=== PATIENT | female | born 1970 | race Caucasian/White ===

== ENCOUNTER 2019-09-14 08:50 | Emergency (ER) | payer BC ==
[2019-09-14 09:33] VITALS: BP 133/91
--- NOTE | 2019-09-14 10:10 | UC ---
Laceration HPI - HPI Summary HPI Summary: Pt presents with c/o laceration to right side lower lip. Pt states that she got up to go to the bathroom earlier this more, had sudden onset of left calf pain that occurs intermittently since having back surgery "many years ago" and "passed out" hit face/mouth on porcelain sink. Pt has c/o "chipped" left front toothe and laceration inside right side lower lip and right side outer lip along vermilion border. - History Of Current Complaint Chief Complaint: UCLaceration Stated Complaint: LIP LACERATION Time Seen by Provider: 09/14/19 09:35 Hx Obtained From: Patient Hx Last Menstrual Period: unknown Laceration Location: Face Mechanism Of Injury: Blunt Trauma Severity: Mild Pain Intensity: 5 Aggravating Factors: Movement - Allergies/Home Medications Allergies/Adverse Reactions: Allergies Allergy/AdvReac Type Severity Reaction Status Date / Time cephalexin [From Keflex] Allergy Rash And Verified 09/14/19 09:13 Itching Penicillins Allergy Rash And Verified 09/14/19 09:13 Itching tetracycline Allergy Swelling Verified 09/14/19 09:13 Of Face,Lips,& Throat Home Medications: Home Medications Ibuprofen TAB* [Advil TAB*] 400 mg PO Q6H PRN 09/14/19 [History Confirmed ] PMH/Surg Hx/FS Hx/Imm Hx Previously Healthy: Yes Neurological History: Other - back surgery - Surgical History Surgical History: Yes Surgery Procedure, Year, and Place[place] [facility] [place] BILAT [place]OT SURGERY CH[place]. URETHRA SURGERY AGE 4 AND 5. L HIP SCOPING 2012. uterine ablation. discectomy. discectomy-L5, S1 - Family History Known Family History: Positive: Unknown, Hypertension - Social History Occupation: Employed Full-time Lives: With Family Alcohol Use: Rare Alcohol Amount: 1/WEEK-NONE RECENTLY Substance Use Type: None Smoking Status (MU): Never Smoked Tobacco Have You Smoked in the Last Year: No - Immunization History Most Recent Influenza Vaccination: pt stated she was getting it every year Most Recent Tetanus Shot: within 10 years Most Recent Pneumonia Vaccination: none Vaccination Up to Date: Yes Review of Systems All Other Systems Reviewed And Are Negative: Yes Constitutional: Positive: Negative Skin: Positive: Other - laceration right side lower lip and linner lip Eyes: Positive: Negative ENT: Positive: Dental Pain - chipped left fron tooth Respiratory: Positive: Negative Cardiovascular: Positive: Negative Gastrointestinal: Positive: Negative Genitourinary: Positive: Negative Motor: Positive: Negative Neurovascular: Positive: Negative Musculoskeletal: Positive: Edema - at laceration site Neurological: Positive: Negative Psychological: Positive: Negative Is Patient Immunocompromised?: No Physical Exam Triage Information Reviewed: Yes Appearance: Well-Appearing Vital Signs: Initial Vital Signs Temp 98.1 F 09/14/19 09:15 Pulse 82 09/14/19 09:15 Resp 14 09/14/19 09:15 BP 133/91 09/14/19 09:15 Pulse Ox 100 09/14/19 09:15 Vital Signs Reviewed: Yes Eye Exam: Normal ENT: Positive: Other - kmild swelling ot right side lower lip. moderate to large amount of white hard, particles, assumed to to be pieces of porcelain sink. Dental: Positive: Dental Fracture @ - left fron tooth, moderate chipped front tooth, no root exposure. Neck exam: Normal Respiratory Exam: Normal Respiratory: Positive: No respiratory distress Cardiovascular Exam: Other - see ekg Musculoskeletal Exam: Normal Neurological Exam: Normal Psychological Exam: Normal Skin Exam: Other - laceration to right side lower lip Laceration Repair - Laceration Repair 1 Description: Linear : No Repair Necessary Laceration Size After Repair: Length (cm) - 1, Width (mm) - 3, Depth (mm) - 3-4 Debridement: large amount of normal saline used to remove pieces of white hard particles, unable to remove fine particles of white material. laceration was closed and edges well aproximated before and after irrigation. I discussed my concerns about closing the woudn with sutures or glue with possible fine FB in wound and pt verbalized understanding and agreed to plan of care. Modified For Repair: No Cleansing Completed Via Routine Prep: Yes Irrigation With Pressure Irrigation Device: Yes Laceration Course/Dx - Course/Dx Course Of Treatment: laceration was not repaired with suture, glue or steri strips. Pt had possible FB that we were unable to removed with copious irrigation and cleansing. - Differential Dx - Laceration/Wound Differental Diagnoses: Laceration - Diagnosis Provider Diagnosis: Laceration of face with foreign body, Chipped tooth Discharge ED - Sign-Out/Discharge Documenting (check all that apply): Patient Departure All imaging exams completed and their final reports reviewed: No Studies - Discharge Plan Condition: Stable Disposition: HOME Prescriptions: Sulfamethox/Trimethoprim DS* [Bactrim DS 800/160 TAB*] 1 tab PO Q12H #14 tab Patient Education Materials: Facial Laceration (ED) Referrals: Ayush Arita MD [Medical Doctor] - Gui Landeros DO [Primary Care Provider] - If Needed Additional Instructions: Please note that your laceration was not sutured closed due to possible foreign body remaining in your wound. To support healing please keep wound clean and covered as needed. Continue to encourage the exfoliation of the fine particles of Foreign Body in your wound through the techniques we discussed. If needed, follow up with a plastic surgeon to improve or revise the scar. - Billing Disposition and Condition Condition: STABLE Disposition: Home
== END 2019-09-14 10:23 | disposition home or self-care (01) ==
LOC: UCCORT 08:50
DX: S01.521A Laceration with foreign body of lip, initial encounter (principal); S02.5XXA Fracture of tooth (traumatic), initial encounter for closed fracture; M79.662 Pain in left lower leg; W22.09XA Striking against other stationary object, initial encounter; Y92.89 Other specified places as the place of occurrence of the external cause; Z98.890 Other specified postprocedural states; Z88.1 Allergy status to other antibiotic agents; Z88.0 Allergy status to penicillin
CPT/HCPCS: 93005; 99212; G0463